=== PATIENT | female | born 1965 | race Caucasian/White ===

== ENCOUNTER 2023-11-09 20:34 | Outpatient (CLI) | payer MEDICARE, MEDICAID | END 2023-11-09 23:59 | disposition critical access hospital (66) | LOC: EMS 20:34 | DX: F10.10 Alcohol abuse, uncomplicated (principal) | CPT/HCPCS: A0425; A0429 ==

== ENCOUNTER 2023-11-09 20:52 | Emergency (ER) | payer MEDICARE, MEDICAID ==
--- NOTE | 2023-11-09 21:05 | ED Physician Documentation ---
History of Present Illness - Stated complaint Stated Complaint: ETOH - Chief complaint Chief Complaint: General - History obtained from History obtained from: Patient - Additonal information Additional information: 57-year-old female with a past medical history of alcoholism. [place] via [place] to stay so she would not drink this weekend. She has been drinking alcohol all day including beer and mixed drinks. She drinks on a daily basis, has had short periods of sobriety over the course of the last year, but no prolonged sobriety. She was just recently hospitalized at [facility] and went to a detox program for about 9 days and then came up to the [place] and started drinking again. No history of detox seizures per her report. She denies any other drug use. Patient has no acute complaints at this time but simply does not want to stay at the house she is at because she thinks she will continue to drink over the weekend and does not want to. She denies suicidal thoughts and reports she otherwise has a safe place to stay at her friend Jose Eduardo's house. Review of Systems Unable to obtain: Intoxicated PD PAST MEDICAL HISTORY - Past Medical History Past Medical History: Yes Psych: Other (Alcoholism) Other Past Medical History: ETOH - Social History Does the pt smoke?: No Smoking Status: Never smoker Does the pt drink ETOH?: Yes - POLST Patient has POLST: No PD ED PE NORMAL - Vitals Vital signs reviewed: Yes - General General: Alert and oriented X 3, No acute distress, Well developed/nourished, Other (Intoxicated but conversant and cooperative) - HEENT HEENT: Atraumatic, Moist mucous membranes - Cardiac Cardiac: RRR, No murmur - Respiratory Respiratory: No respiratory distress, Clear bilaterally - Abdomen Abdomen: Normal bowel sounds, Soft, Non tender, Non distended - Derm Derm: Normal color, Warm and dry - Extremities Extremities: No deformity, No tenderness to palpate, Normal ROM s pain, No edema, No calf tenderness / cord, Other (Ambulatory) - Neuro Neuro: Alert and oriented X 3 Eye Opening: Spontaneous Motor: Obeys Commands Verbal: Oriented GCS Score: 15 Results - Vitals Vitals: Vital Signs - 24 hr 11/09/23 20:55 Temperature 36.9 C Heart Rate 95 Respiratory 22 Rate Blood Pressure 104/79 O2 Saturation 96 Oxygen O2 Source Room air PD Medical Decision Making - ED course Complexity details: reviewed results, re-evaluated patient, d/w patient ED course: 57-year-old female presents via EMS for alcohol intoxication. Patient admits to consuming alcohol throughout the day today and has a history of heavy drinking. She is not currently withdrawing, does exhibit signs clinically of alcohol intoxication, but is ambulatory, awake and conversant. [facility] but also does not want to return to the house she is staying at because she thinks she will start drinking again. We will obtain lab work including alcohol level and encourage the patient to take p.o. fluids. We will then see if [facility] bed for detox or if the patient can return to her friend's house. Will continue to monitor here here until she has a sober ride home, is sober enough for discharge, or agreeable to [facility]. Departure - Departure Clinical Impression: Alcohol intoxication Qualifiers: Complication of substance-induced condition: uncomplicated Qualified Code(s): F10.920 - Alcohol use, unspecified with intoxication, uncomplicated Condition: Good Instructions: ED Alcohol Intoxication Forms: PCP List
[2023-11-09 21:08] VITALS: BP 104/79
[2023-11-09 21:32] LABS: BASOPHILS # (AUTO) 0.2 10^3/uL (0.0-0.1); BASOPHILS % (AUTO) 2.8 %; EOSINOPHILS # (AUTO) 0.3 10^3/uL (0.0-0.7); EOSINOPHILS % (AUTO) 4.6 %; HCT - HEMATOCRIT 40.1 % (37.0-47.0); HGB - HEMOGLOBIN 12.9 g/dL (12.0-16.0); LYMPHOCYTES # (AUTO) 3.7 10^3/uL (1.5-3.5); LYMPHOCYTES % (AUTO) 54.5 %; MEAN CORPUSCULAR HEMOGLOBIN 31.5 pg (27.0-31.0); MEAN CORPUSCULAR HGB CONC 32.2 g/dL (32.0-36.0); MEAN PLATELET VOLUME 9.2 fL (7.9-10.8); MONOCYTES # (AUTO) 0.4 10^3/uL (0.0-1.0); MONOCYTES % (AUTO) 5.5 %; NEUTROPHILS # (AUTO) 2.2 10^3/uL (1.5-6.6); NEUTROPHILS % (AUTO) 32.2 %; PLT - PLATELET COUNT 590 10^3/uL (130-450); RED BLOOD COUNT 4.09 10^6/uL (4.20-5.40); RED CELL DISTRIBUTION WIDTH 12.7 % (12.0-15.0); WHITE BLOOD COUNT 6.8 x10^3/uL (4.8-10.8)
[2023-11-09 21:49] LABS: ALBUMIN 3.8 g/dL (3.2-5.5); ALBUMIN/GLOBULIN RATIO 1.3 (1.0-2.2); BILIRUBIN,TOTAL 0.5 mg/dL (0.2-1.0); CREATININE 0.8 mg/dL (0.6-1.3); ETOH - ETHANOL 211.5 mg/dL; POTASSIUM 3.7 mmol/L (3.5-4.5); TOTAL PROTEIN 6.8 g/dL (6.4-8.9)
[2023-11-09 23:19] VITALS: O2SAT 97
== END 2023-11-09 23:28 | disposition home or self-care (01) ==
LOC: ED 20:52
DX: F10.920 Alcohol use, unspecified with intoxication, uncomplicated (principal); Y90.7 Blood alcohol level of 200-239 mg/100 ml
CPT/HCPCS: 36415; 80053; 83690; 85025; 99283; 99284; G0480; 82077

== ENCOUNTER 2023-11-12 08:39 | Outpatient (CLI) | payer MEDICARE, MEDICAID | END 2023-11-12 23:59 | disposition critical access hospital (66) | LOC: EMS 08:39 | DX: M25.511 Pain in right shoulder (principal); W18.39XA Other fall on same level, initial encounter | CPT/HCPCS: A0425; A0429 ==

== ENCOUNTER 2023-11-12 09:01 | Emergency (ER) | payer MEDICARE, MEDICAID ==
--- NOTE | 2023-11-12 10:20 | ED Physician Documentation ---
History of Present Illness - Stated complaint Stated Complaint: R SHOULDER/RIB PX - Chief complaint Chief Complaint: Trauma Ext - History obtained from History obtained from: Patient - Additonal information Additional information: 57-year-old female presents for evaluation of right shoulder pain. Had a trip and fall 2 days ago with right shoulder injury and injury to right face. She is currently in [facility] for alcohol detox. Last drink yesterday.Brought in for persistent right-sided shoulder pain Review of Systems Constitutional: denies: Fever, Chills Cardiac: denies: Chest pain / pressure, Palpitations, Calf pain Respiratory: denies: Dyspnea, Cough, Wheezing Musculoskeletal: reports: Joint pain. denies: Neck pain, Back pain, Extremity pain, Extremity swelling PD PAST MEDICAL HISTORY - Past Medical History Past Medical History: Yes Psych: Depression, Anxiety, Other - Past Surgical History Past Surgical History: No - Present Medications Home Medications: Ambulatory Orders Medication Instructions Recorded Confirmed Doxycycline [Vibramycin] 100 mg PO BID 11/12/23 11/12/23 Fluoxetine HCl [Prozac] 40 mg PO DAILY 11/12/23 11/12/23 Gabapentin [Gabapentin ER] 300 mg PO TID 11/12/23 11/12/23 LORazepam [Lorazepam] 1 mg PO TID 11/12/23 11/12/23 Levetiracetam [Keppra] 500 mg PO BID 11/12/23 11/12/23 Multivit with Iron,Minerals 1 each PO DAILY 11/12/23 11/12/23 [Multivitamins with Iron] Vit B Comp/Folic/Choline/Inosi 1 each PO DAILY 11/12/23 11/12/23 [Super B-50 Complex Capsule] - Allergies Allergies/Adverse Reactions: Allergies Allergy/AdvReac Type Severity Reaction Status Date / Time peanut Allergy Anaphylaxis Verified 11/12/23 09:07 tetanus and diphtheria Allergy Hives Verified 11/12/23 09:07 toxoids - Social History Does the pt smoke?: No Smoking Status: Never smoker Does the pt drink ETOH?: Yes ETOH Use: Liquor Does the pt have substance abuse?: No - Immunizations Immunizations are current?: No - POLST Patient has POLST: No PD ED PE NORMAL - Vitals Vital signs reviewed: Yes - General General: Alert and oriented X 3, No acute distress, Well developed/nourished - HEENT HEENT: PERRL, EOMI, Other (periorbital brusing R eye) - Cardiac Cardiac: RRR, Strong equal pulses - Respiratory Respiratory: No respiratory distress, Clear bilaterally - Abdomen Abdomen: Soft, Non tender, Non distended - Derm Derm: Normal color, Warm and dry, No rash, Other (periorbital R bruising as noted above) - Extremities Extremities: No deformity, No tenderness to palpate, Normal ROM s pain, No edema - Neuro Neuro: Alert and oriented X 3, 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 Full range of motion of arm. Resting comfortably in bed, no acute distress. Last drink of alcohol last night, however she does not appear to be acutely withdrawing, tremulous, tachycardic, diaphoretic, or in other distress. X-ray imaging negative for acute traumatic findings. Placed in sling for comfort, recommended Tylenol, ibuprofen, ice as needed for pain. Departure - Departure Disposition: 01 Home, Self Care Clinical Impression: Right shoulder pain Qualifiers: Chronicity: acute Qualified Code(s): M25.511 - Pain in right shoulder Condition: Stable Instructions: ED Shoulder Pain [facility] Follow-Up: Kristopher Roche MD [Provider Admit Priv/Credential] - Comments: Your x-rays did not show any acute fracture. Take Tylenol and ibuprofen as needed for pain. If you continue to have pain I recommend following up with orthopedic surgery. Forms: PCP List Discharge Date/Time: 11/12/23 11:42
--- NOTE | 2023-11-12 10:46 | XRAY Report ---
PROCEDURE: Ribs w/PA Chest 3+V RT INDICATIONS: glf, shoulder/rib pain TECHNIQUE: 2 views of the ribs were acquired, along with a single view chest. COMPARISON: None. FINDINGS: Surgical changes and devices: None. Bones and chest wall: No fractures or dislocations. No suspicious bony lesions. Overlying soft tis sues appear unremarkable. Lungs and pleura: No pleural effusions or pneumothorax. Lungs appear clear. Mediastinum: Mediastinal contours appear normal. Heart size is normal. IMPRESSION: No visualized acute fracture or dislocation. However, occult injury cannot be excluded. Recommend thien rt interval imaging follow-up in 7-10 days as clinically indicated for additional evaluation. Reviewed by: Flori Scherer MD on 11/12/2023 10:45 AM PDT Approved by: Flori Scherer MD on 11/12/2023 10:45 AM PDT Station ID: [id number]
--- NOTE | 2023-11-12 10:47 | XRAY Report ---
PROCEDURE: Shoulder 2+V RT INDICATIONS: glf, shoulder/rib pain TECHNIQUE: 3 views of the shoulder were acquired. COMPARISON: None. FINDINGS: Bones: Small ossification lateral to the acromium is present. Moderate to severe acromioclavicular d egenerative narrowing. Humeral head is slightly high riding. Soft tissues: No suspicious soft tissue calcifications. The visualized lungs are within normal limi ts. IMPRESSION: Small ossification lateral to the acromion. This could be degenerative in nature or small avulsion in jury of indeterminate age. High riding humeral head which can be seen with rotator cuff pathology. Reviewed by: Flori Scherer MD on 11/12/2023 10:46 AM PDT Approved by: Flori Scherer MD on 11/12/2023 10:46 AM PDT Station ID: [id number]
[2023-11-12 11:37] VITALS: BP 112/73; O2SAT 92
== END 2023-11-12 11:42 | disposition home or self-care (01) ==
LOC: EDUNIT# → ED 09:01
DX: M25.511 Pain in right shoulder (principal); Z79.899 Other long term (current) drug therapy
CPT/HCPCS: 99283; 99284